=== PATIENT | female | born 1970 | race Caucasian/White ===

== ENCOUNTER → 2017-06-19 | Outpatient (CLI) | payer OTHER | LOC: FIMAGING 10:19 | PROVIDERS: ATTEND Family Medicine | DX: Z12.31 Encounter for screening mammogram for malignant neoplasm of breast (principal); Z80.3 Family history of malignant neoplasm of breast ==

== ENCOUNTER 2018-06-13 20:30 | Emergency (ER) | payer OTHER | END 2018-06-13 23:29 | disposition home or self-care (01) ==